=== PATIENT | female | born 1950 | race African-American/Black ===

== ENCOUNTER 2021-06-25 09:46 | Inpatient (IN) | payer MEDICARE, MEDICAID ==
[~2021-06-25] VITALS: Ht 157.5 cm; Wt 81.8 kg
[2021-06-25] MEDS ORDERED: SODIUM CHLORIDE 0.9% 1,000 ML IV ONE (10:00)
[2021-06-25 10:17] LABS: BASOPHILS % 0.8 % (0.0-2.0); EOSINOPHILS % 6.9 % (0.0-5.0); HEMATOCRIT. 39.9 % (36.0-48.0); HEMOGLOBIN. 13.5 g/dL (12.0-16.0); LYMPHOCYTES % 23.3 % (20.0-50.0); MEAN CORPUSCULAR HEMOGLOBIN 30.2 pg (28.0-32.0); MEAN CORPUSCULAR VOLUME 89.4 fL (81.0-99.0); MEAN PLATELET VOLUME 9.1 fl (7.4-10.4); MONOCYTES % 5.8 % (2.0-8.0); NEUTROPHILS % 63.2 % (40.0-76.0); PLATELET 265 x1000/uL (130-400); RED BLOOD CELL COUNT 4.46 mill/uL (4.2-5.4); RED CELL DISTRIBUTION WIDTH 12.5 % (11.6-14.6)
[2021-06-25 10:24] LABS: CHLORIDE 105 mEq/L (98-107)
[2021-06-25 12:14] LABS: CLARITY URINE CLEAR (CLEAR); COLOR URINE YELLOW (YELLOW); KETONES URINE NEGATIVE (NEGATIVE); LEUKOCYTE ESTERASE URINE NEGATIVE (NEGATIVE); NITRITE URINE NEGATIVE (NEGATIVE); OCCULT BLOOD URINE NEGATIVE (NEGATIVE); PH URINE 7.5 (4.5-8.0); PROTEIN URINE NEGATIVE (NEGATIVE); UROBILINOGEN URINE 0.2 E.U./dL (0.2-1.0)
[2021-06-25] MEDS ORDERED: ASPIRIN 325MG EC TABLET PO ONE (12:30)
[2021-06-25] MEDS ORDERED: ACETAMINOPHEN 325MG TABLET PO PRN (15:15)
[2021-06-25] MEDS ORDERED: ONDANSETRON HCL 4MG/2ML INJ IV PRN (15:15)
[2021-06-25] MEDS: HYDROCODONE/ACETAMINOPHEN 10/325MG TABLET PO PRN (22:07)
[2021-06-25] MEDS ORDERED: NALOXONE HCL 0.4MG/ML VIAL IV PRN (22:15)
[2021-06-26 08:37] VITALS: BP 164/73
[2021-06-26 08:45] VITALS: BP 164/73
[2021-06-26] MEDS ORDERED: LOSA50TA41 PO (10:06)
[2021-06-26] MEDS: AMLODIPINE 10MG TABLET PO SCH (11:38)
[2021-06-26] MEDS: HYDROCODONE/ACETAMINOPHEN 10/325MG TABLET PO PRN ×3 (11:38→23:19)
[2021-06-26 12:00] VITALS: BP 162/57
[2021-06-26] MEDS: GABAPENTIN 300MG CAPSULE PO SCH ×2 (13:50→16:50)
[2021-06-26 16:00] VITALS: BP 167/77
[2021-06-26 20:00] VITALS: BP 140/60
[2021-06-27] VITALS (14 sets, daily range): BP systolic 89–157; BP diastolic 38–95
[2021-06-27] MEDS: HYDROCODONE/ACETAMINOPHEN 10/325MG TABLET PO PRN (04:21)
[2021-06-27] MEDS: GABAPENTIN 300MG CAPSULE PO SCH ×3 (09:00→17:00)
[2021-06-27] MEDS: AMLODIPINE 10MG TABLET PO SCH (09:00)
[2021-06-27] MEDS ORDERED: VERAPAMIL HCL 2.5 MG/1 ML 2ML VIAL IV ONE (09:27)
[2021-06-27] MEDS ORDERED: LIDOCAINE HCL 1% 30ML VIAL (10MG/ML) ONE (09:28)
[2021-06-27] MEDS ORDERED: IODIXANOL 320MG/ML 100 ML BOTTLE IV ONE ×2 (09:28→10:51)
[2021-06-27] MEDS ORDERED: NICARDIPINE 100MCG/ML 10ML VIAL (CATH LAB) IV ONE (09:30)
[2021-06-27] MEDS ORDERED: NITROGLYCERIN 50MCG/ML 10ML VIAL (CATH LAB) IV ONE (09:30)
[2021-06-27] MEDS ORDERED: HEPARIN SODIUM 1,000 UNIT/1ML VIAL IV ONE (09:30)
[2021-06-27] MEDS ORDERED: MIDAZOLAM HCL 2 MG/2 ML VIAL ONE (09:45)
[2021-06-27] MEDS ORDERED: FENTANYL CITRATE/PF 50MCG/ML 2ML VIAL ONE (09:47)
[2021-06-27] MEDS ORDERED: DIPHENHYDRAMINE 50MG/ML VIAL ONE (09:47)
[2021-06-27] MEDS ORDERED: IOHEXOL-300 100 ML BOTTLE ONE (10:55)
[2021-06-27] MEDS ORDERED: CLOPIDOGREL 75MG TABLET ONE ×2 (11:02→11:30)
[2021-06-27] MEDS ORDERED: ASPIRIN 325MG EC TABLET PO ONE (11:05)
[2021-06-27] MEDS ORDERED: HYDRALAZINE 20MG/ML VIAL ONE (11:21)
[2021-06-27] MEDS ORDERED: ATROPINE SULFATE 1MG/10ML SYR IV PRN (11:45)
[2021-06-27] MEDS: SODIUM CHLORIDE 0.45% 1,000 ML IV SCH ×2 (12:23→20:11)
[2021-06-28] VITALS (7 sets, daily range): BP systolic 127–150; BP diastolic 58–88
[2021-06-28] MEDS: SODIUM CHLORIDE 0.45% 1,000 ML IV SCH (06:01)
[2021-06-28 07:19] LABS: BASOPHILS % 0.6 % (0.0-2.0); EOSINOPHILS % 3.5 % (0.0-5.0); HEMATOCRIT. 35.9 % (36.0-48.0); HEMOGLOBIN. 11.9 g/dL (12.0-16.0); LYMPHOCYTES % 24.1 % (20.0-50.0); MEAN CORPUSCULAR HEMOGLOBIN 30.1 pg (28.0-32.0); MEAN CORPUSCULAR VOLUME 90.7 fL (81.0-99.0); MEAN PLATELET VOLUME 9.7 fl (7.4-10.4); MONOCYTES % 7.5 % (2.0-8.0); NEUTROPHILS % 64.3 % (40.0-76.0); PLATELET 208 x1000/uL (130-400); RED BLOOD CELL COUNT 3.96 mill/uL (4.2-5.4); RED CELL DISTRIBUTION WIDTH 12.7 % (11.6-14.6)
[2021-06-28 07:23] LABS: CHLORIDE 109 mEq/L (98-107)
[2021-06-28] MEDS: AMLODIPINE 10MG TABLET PO SCH (07:55)
[2021-06-28] MEDS: GABAPENTIN 300MG CAPSULE PO SCH (07:55)
[2021-06-28] MEDS ORDERED: CLOP-31 MT (08:27)
[2021-06-28] MEDS ORDERED: ASPI-1406 MT (08:27)
[2021-06-28] MEDS ORDERED: CLOPIDOGREL 75MG TABLET PO SCH (09:00)
[2021-06-28] MEDS ORDERED: ASPIRIN 81MG TABLET PO SCH (09:00)
== END 2021-06-28 11:55 | disposition home or self-care (01) | DRG 247 ==
LOC: ER 10:16 → MICUSO 12:31 → 6WST 06-26 08:55 → 3WST 06-27 11:42
PROVIDERS: ADMIT Internal Medicine; ATTEND Internal Medicine
PROC: 027034Z Dilation of Coronary Artery, One Artery with Drug-eluting Intraluminal Device, Percutaneous Approach (ICD-10-PCS; principal; 2021-06-27)
PROC: 4A023N7 Measurement of Cardiac Sampling and Pressure, Left Heart, Percutaneous Approach (ICD-10-PCS; 2021-06-27)
PROC: B2111ZZ Fluoroscopy of Multiple Coronary Arteries using Low Osmolar Contrast (ICD-10-PCS; 2021-06-27)
DX: I21.4 Non-ST elevation (NSTEMI) myocardial infarction (principal); I16.0 Hypertensive urgency; E66.9 Obesity, unspecified; I10 Essential (primary) hypertension; E78.5 Hyperlipidemia, unspecified; I25.10 Atherosclerotic heart disease of native coronary artery without angina pectoris; D72.819 Decreased white blood cell count, unspecified; G90.8 Other disorders of autonomic nervous system; G89.29 Other chronic pain; Z20.822 Contact with and (suspected) exposure to COVID-19; M19.90 Unspecified osteoarthritis, unspecified site; Z88.0 Allergy status to penicillin; Z82.49 Family history of ischemic heart disease and other diseases of the circulatory system; Z83.3 Family history of diabetes mellitus; Z68.33 Body mass index [BMI] 33.0-33.9, adult
CPT/HCPCS: 36415; 71045; 80048; 80053; 81003; 82962; 84443; 84484; 85025; 87426; 92928; 93005; 93306; 93458; 93880; 97161; 99291; C1769; C1874; C1887; C1893; J0360; J1200; J1644; J2250; J3010; J3490; J7030; J7040; Q9967